=== PATIENT | female | born 2000 | race African-American/Black ===

== ENCOUNTER 2019-06-11 12:44 | Outpatient (RCR) | payer OTHER, SELFPAY | END 2019-09-07 23:59 | disposition home or self-care (01) | LOC: ANHLAB 12:44 | PROVIDERS: PCP Family Medicine; Visit Provider Obstetrics & Gynecology Gynecology | DX: O26.21 Pregnancy care for patient with recurrent pregnancy loss, first trimester (principal); Z3A.00 Weeks of gestation of pregnancy not specified | CPT/HCPCS: 36415; 84702 ==

== ENCOUNTER 2019-06-12 15:12 | Outpatient (CLI) | payer OTHER, SELFPAY ==
--- NOTE | ~2019-06-12 | US_ITS ---
US OB <=14 wk fetus w TV DATE: 06/12/2019 16:03 INDICATION: Gestational age and viability determination TECHNIQUE: Real-time imaging via transabdominal and transvaginal approaches COMPARISON: None FINDINGS: Retroverted uterus measures approximately 8 cm height, 5.8 cm AP, 6.2 cm transverse dimensi on. An intrauterine gestational sac is detected, with normal surrounding hyperechogenicity consistent with decidual reaction. Yolk sac and pole are detected. heart motion is noted; hea rt rate of 144 bpm [place]-rump length measurement is 3.2 mm, consistent with estimated gestational age of 6 weeks +/- 4 d ays; NILO is 02/05/2020. The ovaries appear normal, with normal vascularity. No pelvic mass or abnormal pelvic free fluid vin ection is evident. IMPRESSION: Estimated gestational age of 6 weeks +/- 4 days; NILO: 02/05/2020 Reviewed, dictated and finalized at [facility]. Reviewed, dictated and finalized at [facility].
== END 2019-06-12 15:13 | disposition home or self-care (01) ==
PROVIDERS: PCP Family Medicine; Visit Provider Nurse Practitioner
DX: Z36.89 Encounter for other specified antenatal screening (principal); Z3A.01 Less than 8 weeks gestation of pregnancy
CPT/HCPCS: 76801; 76817

== ENCOUNTER 2019-09-10 14:47 | Outpatient (CLI) | payer OTHER, MEDICAID, SELFPAY ==
--- NOTE | ~2019-09-10 | US_ITS ---
EXAMINATION: US OB /maternal detail DATE: 09/10/2019 15:33 INDICATION: Second trimester anatomic survey TECHNIQUE: Real-time ultrasound of the pelvis was performed. COMPARISON: None. FINDINGS: There is a single living fetus in vertex presentation. The placenta is anterior and 5.4 cm from the i nternal cervical os. Multiple hypoechoic areas placenta likely represent venous [place]. heart ra te is 139 beats per minute (bpm). cardiac activity and movement are noted. The amniotic fluid index is subjectively normal. The following anatomy was identified as normal: 4 chamber heart 3 vessel cord cord insertion kidneys urinary bladder stomach spine diaphragm ventricles cisterna magna cerebellum The following biometric data were obtained: Biparietal diameter (BPD): 4.5 cm; head circumference (HC): 17.3 cm; abdominal circumference (AC): 14 .5 cm; femur length (FL): 3.0 cm. These measurements are concordant. Estimated weight is 304 g +/- 45 g, which correlates with the 88th percentile when 02/05/2020 i s used as estimated date of delivery. As single measurements, these parameters are each equal to the following estimated gestational ages w ith ranges of +/- 2 standard deviations: BPD: 19 weeks 6 days ( 18 weeks 1 days - 21 weeks 4 days). HC: 19 weeks 6 days ( 18 weeks 3 days - 21 weeks 3 days). AC: 19 weeks 6 days ( 17 weeks 6 days - 22 weeks 0 days). FL: 19 weeks 2 days ( 17 weeks 3 days - 21 weeks 0 days). estimated gestational age based solely on measurements from this exam is 19 weeks 5 days +/- 1 weeks 3 days. IMPRESSION: 1. Single living fetus in vertex presentation. 2. Estimated weight is 304 g +/- 45 g, which correlates with the 88th percentile when 0 is used as estimated date of delivery. Reviewed, dictated and finalized at location [facility]. IMPRESSION: 1. Single living fetus in vertex presentation. 2. Estimated weight is 304 g +/- 45 g, which correlates with the 88th per centile when 02/05/2020 is used as estimated date of delivery.
== END 2019-09-10 14:48 | disposition home or self-care (01) ==
PROVIDERS: PCP Family Medicine; Visit Provider Obstetrics & Gynecology Gynecology
DX: Z36.89 Encounter for other specified antenatal screening (principal)
CPT/HCPCS: 76805

== ENCOUNTER 2020-01-29 09:37 | Inpatient (IN) | payer OTHER, MEDICAID, SELFPAY ==
[2020-01-29] VITALS (64 sets, daily range): BP systolic 84–133; BP diastolic 44–106; PULSE 59–113; O2SAT 88–100; BMI 28.5
[2020-01-29 10:54] LABS: Basophils Absolute Auto 0.1 K/mm3 (0.0-0.1); Basophils Percent Auto 0.4 % (0.2-1.2); Eosinophils Absolute Auto 0.2 K/mm3 (0-0.3); Eosinophils Percent Auto 1.2 % (0-4.4); Hematocrit 35.6 % (37.0-47.0); Hemoglobin 11.8 g/dL (12.0-15.0); Immature Granulocyte Absolute 0.06 K/mm3 (0.00-0.031); Immature Granulocyte Percent A 0.4 % (0-0.5); Lymphocytes Absolute Auto 2.65 K/mm3 (0.9-3.2); Lymphocytes Percent Auto 19.5 % (18.3-44.2); Mean Corpuscular HGB Conc 33.1 g/dl (32-36); Mean Corpuscular Hemoglobin 30.3 pg (26-34); Mean Corpuscular Volume 91.3 fl (80-100); Mean Platelet Volume 10.5 fl (7.4-10.4); Monocytes Percent Auto 7.4 % (2.6-8.5); Neutrophils Absolute Auto 9.6 K/mm3 (1.3-6.7); Neutrophils Percent Auto 71.1 % (45.5-73.1); Platelet Count Result 285 k/mm3 (150-375); Red Cell Distribution Width 12.7 % (11.5-14.5); White Blood Count 13.6 K/mm3 (4.5-10.0)
[2020-01-29] MEDS: LACTATED RINGERS 1,000 ML 125 ML IV CONT (10:56)
[2020-01-29] MEDS: AMPICILLIN 2 GM/NS 100 ML 2 GM/100 ML BAG IVPB (10:57)
--- NOTE | 2020-01-29 11:02 | LDADM ---
This patient, Mai Ferrer, was admitted to Labor/Delivery/Recovery 107 on 01/29/20 at 09:37. Plans for labor, pain management and were discussed with patient. Patient/family oriented to hospital policies and general routines including ID bracelet, bed and alarms, visiting hours, pain management, procedures, bathroom and other care routines, personal items, smoking policy, room service/diet and guest tray routines, security routines,call light, and visiting hours. Patient/Family are encouraged to report perceived risks to care and to ask questions if they do not understand what they are told or what they should do. See OBIX for further documentation.
--- NOTE | 2020-01-29 14:13 | WPDANESEPPF ---
Anes - Initial Pre Proc Eval Procedure: labor epidural Date/Time: 01/29/20 14:13 Surgeon: Delmy Xiong MD Pre Op Diagnosis: labor pain Pre Op Diagnosis: Contractions Patient Data Age: 19 Gender: F Height: 1.57 m Weight: 70.7 kg Last Vital Signs Pulse 59 L 01/29/20 14:00 BP 117/75 01/29/20 14:00 Pulse Ox 100 01/29/20 14:11 Allergies Allergy/AdvReac Type Severity Reaction Status Date / Time No Known Allergies Allergy Verified 01/06/20 15:42 Home Medications Medication Instructions Recorded Confirmed Type ergocalciferol (vitamin D2) 1,250 mcg PO 2XW 01/06/20 01/06/20 History [Vitamin D2] prenat.vits,amira,jvh-ibry-cydav 1 tablet PO DAILY 01/06/20 01/06/20 History [ #2] sertraline 50 mg PO DAILY 01/06/20 01/06/20 History valacyclovir 500 mg PO DAILY 01/06/20 01/06/20 History Laboratory Tests 01/29/20 01/29/20 01/29/20 10:45 10:45 10:45 WBC 13.6 K/mm3 H K/mm3 (4.5-10.0) RBC 3.90 M/mm3 L M/mm3 (4.2-5.4) Hgb 11.8 g/dL L g/dL (12.0-15.0) Hct 35.6 % L % (37.0-47.0) MCV 91.3 fl fl (80-100) MCH 30.3 pg pg (26-34) MCHC 33.1 g/dl g/dl (32-36) RDW 12.7 % % (11.5-14.5) Plt Count 285 k/mm3 k/mm3 (150-375) MPV 10.5 fl H fl (7.4-10.4) Immature Gran % (Auto) 0.4 % % (0-0.5) Neut % (Auto) 71.1 % % (45.5-73.1) Lymph % (Auto) 19.5 % % (18.3-44.2) [place] % (Auto) 7.4 % % (2.6-8.5) Eos % (Auto) 1.2 % % (0-4.4) Baso % (Auto) 0.4 % % (0.2-1.2) Lymph # (Auto) 2.65 K/mm3 K/mm3 (0.9-3.2) [place] # (Auto) 1.0 K/mm3 H K/mm3 (0.1-0.6) Eos # (Auto) 0.2 K/mm3 K/mm3 (0-0.3) Baso # (Auto) 0.1 K/mm3 K/mm3 (0.0-0.1) Abs Immat Gran (auto) 0.06 K/mm3 H K/mm3 (0.00-0.031) Absolute Neuts (auto) 9.6 K/mm3 H K/mm3 (1.3-6.7) Absolute Nucleated RBC 0.0 K/mm3 K/mm3 (0.0-0.012) Nucleated RBC % 0.0 % % (0.0-0.2) RPR Pending Blood Type O Positive Antibody Screen Negative Patient hx anesthesia problems: none Family hx anesthesia problems: none [facility] Past Medical History Medical History (Updated 01/29/20 @ 14:14 by Leo Larson DO) Anxiety Bipolar disorder Depression Family History Family History (Updated 01/06/20 @ 15:48 by Dylan Dowling RN) Grandparent Diabetes mellitus Schizophrenia, acute Mother Bipolar 2 disorder Anxiety Depression Social History Social History Smoking status: Never smoker Alcohol intake: never Substance use: current Spiritual care concerns: No Anes - Eval Final PreProcedure Day of Procedure 01/29/20 14:13 Patient weight: overweight ASA classification: II Anesthesia type and monitoring: regional epidural Informed Consent: The patient's anesthetic plan and its attendant risks and benefits were discussed with the patient/family/POA. Questions were solicited and answers provided to the satisfaction of the patient/family/POA.
[2020-01-29] MEDS: AMPICILLIN 1 GM/NS 50 ML 1 GM/50 ML BAG IVPB ×2 (14:55→19:24)
[2020-01-29 17:51] LABS: Amphetamine Screen Urine Negative (Negative); Barbiturate Screen Urine Negative (Negative); Benzodiazepines Screen Urine Negative (Negative); Cannabinoid Screen Urine Negative (Negative); Cocaine Screen Urine Negative (Negative); Methadone Screen Urine Negative (Negative); Opiate Screen Urine Negative (Negative); Phencyclidine Screen Urine Negative (Negative)
[2020-01-29] MEDS: OXYTOCIN 30 UNITS/NS 500 ML 30 UNITS/500 ML BAG 999 UNITS IV CONT (20:24)
--- NOTE | 2020-01-29 20:35 | WPDOBADMIT ---
Obstetrics - Admit Note Admission Note: AROm clear fluid complete and 0 stationPrenatal record reviewed. No pertinent additions to the history and/or any subsequent changes in the physical findings that are not consistent with the expected course of the were found. Additions to the history and/or subsequent changes in the physical findings follow. None.
--- NOTE | 2020-01-29 20:45 | PM.OBPRVD ---
OB - Delivery Note Procedure Delivery date: 01/29/20 Procedure: Intrapartal events: None Induction method: none Delivery augmentation: rupture of membranes Delivery monitor: external FHT and external uterine Route of delivery: Laceration Description: Vaginal - 1st Degree Delivery repair: vicryl Specimen: No Estimated blood loss (mL): 300 Anesthesia type: Epidural Disposition: floor Baby Date of : 01/29/20 Time of : 20:18 Weeks of gestation at delivery: 39 Infant gender: Male Weight (pounds): 6 Weight (ounces): 12 presentation: vertex position: Right Occiput Anterior Placenta delivery description: Spontaneous cord vessel description: 3 Vessels, Clamped/Cut and Around Body x1 score one minute: 9 score five minutes: 9
--- NOTE | 2020-01-29 20:48 | PM.DS ---
DS: Admitting Diagnosis Admitting Diagnosis Admitting Diagnosis: Contractions DS: Discharge Diagnosis Discharge Diagnosis (1) (normal spontaneous vaginal delivery): Code(s): O80 - Encounter for full-term uncomplicated delivery Status: Acute DS: Summary Time Spent with Patient Time attestation: Total time spent providing and/or coordinating discharge services: Exam GI: Inspection: normal to inspection Other: ff below umb DS: Data Data Completed and Pending Labs on day of discharge: Labs from last 24 hours 01/29/20 01/29/20 01/29/20 17:21 10:45 10:45 WBC RBC Hgb Hct MCV MCH MCHC RDW Plt Count MPV Immature Gran % (Auto) Neut % (Auto) Lymph % (Auto) [place] % (Auto) Eos % (Auto) Baso % (Auto) Lymph # (Auto) [place] # (Auto) Eos # (Auto) Baso # (Auto) Abs Immat Gran (auto) Absolute Neuts (auto) Absolute Nucleated RBC Nucleated RBC % Urine Opiates Screen Negative Urine Methadone Screen Negative Ur Barbiturates Screen Negative Ur Phencyclidine Scrn Negative Ur Amphetamine Screen Negative U Benzodiazepines Scrn Negative Urine Cocaine Screen Negative U Cannabinoids Screen Negative RPR Pending Blood Type O Positive Antibody Screen Negative 01/29/20 10:45 WBC 13.6 H RBC 3.90 L Hgb 11.8 L Hct 35.6 L MCV 91.3 MCH 30.3 MCHC 33.1 RDW 12.7 Plt Count 285 MPV 10.5 H Immature Gran % (Auto) 0.4 Neut % (Auto) 71.1 Lymph % (Auto) 19.5 [place] % (Auto) 7.4 Eos % (Auto) 1.2 Baso % (Auto) 0.4 Lymph # (Auto) 2.65 [place] # (Auto) 1.0 H Eos # (Auto) 0.2 Baso # (Auto) 0.1 Abs Immat Gran (auto) 0.06 H Absolute Neuts (auto) 9.6 H Absolute Nucleated RBC 0.0 Nucleated RBC % 0.0 Urine Opiates Screen Urine Methadone Screen Ur Barbiturates Screen Ur Phencyclidine Scrn Ur Amphetamine Screen U Benzodiazepines Scrn Urine Cocaine Screen U Cannabinoids Screen RPR Blood Type Antibody Screen Discharge Plan Discharge Attending physician on discharge: Sarkis Harrison Discharging Clinician: Sarkis Harrison Patient Disposition: Home, Self-Care Activity: may shower and pelvic rest Diet: regular Patient Instructions: Antibiotic Form Stand Alone Forms: General Discharge Information Follow-up/Referrals: Delmy Xiong MD [Physician] - 4 Weeks (nexplanon insertion) Discharge Medications: No Action valacyclovir 500 mg Tablet 500 mg PO DAILY RF: 0 ergocalciferol (vitamin D2) [Vitamin D2] 1,250 mcg (50,000 unit) Capsule 1,250 mcg PO 2XW RF: 0 sertraline 50 mg Tablet 50 mg PO DAILY RF: 0 #2 Tablet 1 tablet PO DAILY RF: 0 Date of admission: 01/29/20 09:37 Primary Care Provider: Caterina Art Admitting Provider: Delmy Xiong Attending physician on admission: Delmy Xiong
[2020-01-29] MEDS: OXYTOCIN 30 UNITS/NS 500 ML 30 UNITS/500 ML BAG 125 UNITS IV CONT (21:05)
[2020-01-29] MEDS: WITCH HAZEL 40 PADS 1 PAD TOPICAL (22:52)
[2020-01-29] MEDS: IBUPROFEN 600 MG TABLET PO (22:52)
[2020-01-29] MEDS: BENZOCAINE 20% AER SPR (*SP) 56 GM CAN 1 SPRAY TOPICAL (22:52)
--- NOTE | 2020-01-29 23:30 | OBPPTRN ---
Patient transferred to post room #288 via wheelchair with in crib. Support person present. Oriented to unit, room, information board, rooming in, admission packet and security measures. Patient verbalizes understanding.
[2020-01-30 00:50] VITALS: BP 99/55; PULSE 72; RESP 17; TEMP 36.7
[2020-01-30 05:38] LABS: Hematocrit 29.7 % (37.0-47.0)
[2020-01-30] MEDS: DOCUSATE SODIUM 100 MG CAPSULE PO ×2 (08:29→15:56)
[2020-01-30] MEDS: MULTIVIT/MIN/PREN/FOL AC/IRON TABLET 1 TAB PO (08:29)
[2020-01-30 08:30] VITALS: BP 95/67; PULSE 72; RESP 12; TEMP 36.4; O2SAT 100
[2020-01-30] MEDS: IBUPROFEN 600 MG TABLET PO ×2 (08:30→15:56)
[2020-01-30 19:10] VITALS: BP 102/62; PULSE 69; RESP 18; TEMP 36.6; O2SAT 100
--- NOTE | 2020-01-30 23:02 | PC.NURSE ---
January 30, 2020 at 2000 Patient viewed the discharge video Mother & Baby Care, The First Two Weeks . Patient was given the opportunity and encouraged to ask questions. Patient verbalized understanding of information shared and has been given the mother/baby guide for home reference.
--- NOTE | 2020-01-31 02:23 | PC.NURSE ---
January 31, 2020 at approximately 2330. With only the Mother and baby in the room I discussed with mother her taking Valacyclovir 500 mg every day for herpes. I explained to mother that is it possible for her to give the baby herpes. Mother states understanding. I explained to mother the importance of her taking the medication as prescribed and if she notices any outbreaks she needs to call her doctor immediately and get the prescription. I also discussed the high importance of handwashing and calling the Senior Accounting Manager if she notices an problems with baby such as poor feeding, lethargy, rhythmic shaking, or increased temperature, etc. I reinforced to Mother if she has any questions or concerns she needs to call her doctor or baby's doctor immediately. Mother states understanding.
--- NOTE | 2020-01-31 03:54 | PHAR ---
PATIENT HOME VALACYCLOVIR ORDERED BY PROVIDER, VERIFIED IN PHARMACY, AND SENT BACK TO FLOOR. (DAP)
[2020-01-31] MEDS: MULTIVIT/MIN/PREN/FOL AC/IRON TABLET 1 TAB PO (09:54)
[2020-01-31] MEDS: DOCUSATE SODIUM 100 MG CAPSULE PO (09:54)
--- NOTE | 2020-01-31 09:57 | WPDANLDPN2 ---
Anes-Prog Note L&D Date/Time: 01/31/20 09:57 Comfortable throughout: labor and delivery Neuraxial method: epidural Epidural/Spinal procedure site: clean & non-tender Neuro status: Neuro function grossly intact. Cardiovascular status: normal Respiratory status: normal Airway patency: baseline Mental status: baseline Post-Op hydration status: normal Vital Signs: Last Vital Signs Temp 36.6 C 01/30/20 19:10 Pulse 69 01/30/20 19:10 Resp 18 01/30/20 19:10 BP 102/62 01/30/20 19:10 Pulse Ox 100 01/30/20 19:10 Pain score (VAS): 0 Post-procedural complaints: none Patient feedback: Patient satisfied with anesthetic care.
--- NOTE | 2020-01-31 11:22 | P.PNOB_ITS ---
OB - PN: Subj Subjective Date/time seen: 01/31/20 11:22 S: doing well no complaints OB - PN: Obj Data Labs CBC & Chem 7: 01/30/20 05:08 OB - PN A/P Assessment and Plan (1) (normal spontaneous vaginal delivery): Code(s): O80 - Encounter for full-term uncomplicated delivery Status: Acute Assessment and Plan: continue with pp care. Time Spent With Patient Time: Total time spent is greater than 50% in coordination of care (as docum ented) at patient's floor/unit and/or counseling patient: Exam GI: Inspection: normal to inspection Other: ff fundus below umbilicus
[2020-02-01 07:02] LABS: Rapid Plasma Reagin Non-Reactive (NonReactive)
[2020-02-03 09:18] VITALS: BP 112/71; PULSE 79; RESP 20; TEMP 36.9; O2SAT 100
== END 2020-01-31 13:20 | disposition home or self-care (01) | DRG 806 ==
LOC: ANHLDR 20:50 → ANHOB2 01-31 11:40 → ANHLDR 02-02 10:22 → ANHOB2 02-02 10:22
PROVIDERS: Admitting Provider Obstetrics & Gynecology Gynecology; PCP Family Medicine; Visit Provider Obstetrics & Gynecology
DX: O69.81X0 Labor and delivery complicated by cord around neck, without compression, not applicable or unspecified (principal); O98.32 Other infections with a predominantly sexual mode of transmission complicating childbirth; Z37.0 Single live birth; O99.344 Other mental disorders complicating childbirth; Z3A.39 39 weeks gestation of pregnancy; F31.9 Bipolar disorder, unspecified; F41.8 Other specified anxiety disorders; O70.0 First degree perineal laceration during delivery; O36.8330 Maternal care for abnormalities of the fetal heart rate or rhythm, third trimester, not applicable or unspecified; O99.824 Streptococcus B carrier state complicating childbirth; B00.9 Herpesviral infection, unspecified
CPT/HCPCS: 36415; 80307; 85014; 85018; 85025; 86592; 86850; 86900; 86901; A9270; J0290; J2590; J2795; J7120

== ENCOUNTER 2020-06-08 19:22 | Emergency (ER) | payer OTHER, SELFPAY ==
[2020-06-08 19:30] VITALS: BP 98/65; PULSE 89; RESP 16; TEMP 36.5; O2SAT 100
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
[2020-06-08 20:45] VITALS: BP 122/75; PULSE 78; RESP 18; O2SAT 99
== END 2020-06-08 20:47 | disposition home or self-care (01) ==
PROVIDERS: Emergency Provider Emergency Medicine; PCP Family Medicine
DX: S06.0X0A Concussion without loss of consciousness, initial encounter (principal); R25.2 Cramp and spasm; F41.9 Anxiety disorder, unspecified; F31.9 Bipolar disorder, unspecified; V43.52XA Car driver injured in collision with other type car in traffic accident, initial encounter
CPT/HCPCS: 99283

== ENCOUNTER 2020-07-25 12:59 | Emergency (ER) | payer OTHER, SELFPAY ==
[2020-07-25 13:10] VITALS: BP 113/64; PULSE 82; RESP 16; TEMP 36.3; O2SAT 99
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
[2020-07-25] MEDS: AZITHROMYCIN 250 MG TABLET 1000 MG PO (13:48)
[2020-07-25] MEDS: LIDOCAINE HCL 1% LOCAL INJ 20 ML VIAL INFILTRATE (13:48)
[2020-07-25] MEDS: cefTRIAXone 250 MG VIAL IM (13:48)
== END 2020-07-25 14:10 | disposition home or self-care (01) ==
PROVIDERS: Emergency Provider Nurse Practitioner; PCP Family Medicine
DX: Z20.2 Contact with and (suspected) exposure to infections with a predominantly sexual mode of transmission (principal)
CPT/HCPCS: 81003; 87086; 87491; 87591; 87661; 96372; 99214; A9270; G0463; J0696

== ENCOUNTER 2021-05-01 13:05 | Emergency (ER) | payer OTHER, SELFPAY ==
--- NOTE | 2021-05-01 13:15 | ED.ABDPAIN ---
HPI - Abdominal Pain General Chief Complaint: Abdominal Pain Stated Complaint: Abd pain Time Seen by Provider: 05/01/21 13:15 Source: patient, RN notes reviewed and old records reviewed Mode of arrival: ambulatory Limitations: no limitations History of Present Illness HPI narrative: 21-year-old female presents to the [facility] with complaints of nausea without vomiting, lower suprapubic pain with urinary symptoms and vaginal complaints. Thinks she might be . Patient reports that it all started 4 days ago when she had sex that was consensual. States it became a little aggressive and thinks that she has small tears or herpes outbreak. Does have a history of herpes. States that she has not been taking prevention medication. MD elicited complaint: abdominal pain Related Data Allergies Allergy/AdvReac Type Severity Reaction Status Date / Time No Known Allergies Allergy Verified 05/01/21 13:40 Review of Systems Review of Systems: All systems reviewed & are unremarkable except as noted in HPI and below Constitutional: Constitutional: Reports no additional constitutional complaints, Denies body ache(s), Denies chills and Denies fever(s) Eyes: Eyes: Reports no additional eye complaints ENT: Reports system reviewed and no additional complaints, except as documented Cardiovascular: Cardiovascular: Reports no additional cardiovascular complaints, Denies chest pain and Denies dyspnea Respiratory: Respiratory: Reports no additional respiratory complaints, Denies cough and Denies dyspnea Gastrointestinal: Gastrointestinal: Reports as per HPI, Reports abdominal pain (Suprapubic), Denies diarrhea, Denies nausea and Denies vomiting Genitourinary: Genitourinary: Reports as per HPI and Reports pelvic pain Musculoskeletal: Musculoskeletal: Reports no additional musculoskeletal complaints Integumentary/Breasts: Skin/Breast: Reports system reviewed and no additional complaints, except as docu Neurologic: Reports system reviewed and no additional complaints, except as documented Psychiatric: Psychiatric: Reports no additional psychiatric complaints Allergic/Immunologic: Allergic/Immunologic: Reports no additional allergic/immunologic complaints PMFSH Past Medical History Medical History Anxiety Bipolar disorder Depression (normal spontaneous vaginal delivery) Family History Family History Grandparent Diabetes mellitus Schizophrenia, acute Mother Bipolar 2 disorder Anxiety Depression Social History Social History (Reviewed 05/01/21 @ 19:42 by BELIA Gaspar Smoking status: Never smoker Alcohol intake: never Substance use: current Gender identity (if verbalized by the patient): Female Spiritual care concerns: No Comments At the time of my signature, I reviewed and agree with the nursing past medical, surgical, social, and family history. There is no relevant family history pertinent to the patient complaint. Exam Const: General: cooperative, healthy appearing, comfortable, no acute distress, well developed and alert Nutritional Appearance: well nourished and thin Orientation/consciousness: patient oriented x3 Limitations: no limitations HENMT: Head: normal to inspection Ears: external ears normal Eyes: Pupils: Equal, round and reactive pupils present Neck: Neck: normal visual inspection, no lymphadenopathy and no meningeal signs Chest: Chest palpation & inspection: normal inspection of the chest Resp: Effort & Inspection: normal respiratory effort, able to speak in complete sentences and no use of accessory muscles Auscultation: clear to auscultation bilaterally Cardio: Rate: regular rate Rhythm: regular rhythm GI: GI Palp: Yes Soft to palpation, No Tenderness to palpation present (GI), No Guarding due to palpation present (GI) and No Rebound tenderness present :
[2021-05-01 13:45] VITALS: BP 120/98; PULSE 95; RESP 12; TEMP 36.4; O2SAT 100
== END 2021-05-01 14:00 | disposition home or self-care (01) ==
PROVIDERS: Emergency Provider Nurse Practitioner; PCP Family Medicine
DX: N76.0 Acute vaginitis (principal); B37.3 Candidiasis of vulva and vagina
CPT/HCPCS: 81003; 81025; 87070; 87491; 87591; 87661; 99214; G0463

== ENCOUNTER 2021-05-16 16:05 | Emergency (ER) | payer OTHER, SELFPAY ==
[2021-05-16 16:20] VITALS: BP 99/61; PULSE 105; RESP 16; TEMP 36.8; O2SAT 100
--- NOTE | 2021-05-16 16:41 | ED.NAVMDI ---
HPI - Nausea/Vomiting/Diarrhea General Chief complaint: Nausea/Vomiting/Diarrhea Stated complaint: abd pain/vomiting Time Seen by Provider: 05/16/21 16:41 Source: patient Mode of arrival: ambulatory Limitations: no limitations History of Present Illness HPI Narrative: 21 yo F presents with c/o N/V/D, ABD cramping, fatigue for 3 to 4 days. Reports that her boyfriend has similar symptoms and they resolved. Today she was able to drink tea and eat without vomiting. Had 1 episode of diarrhea today. Still thinks she cannot go back to work and needs note. Afebrile. All systems reviewed and negative except as noted above. Related Data Allergies Allergy/AdvReac Type Severity Reaction Status Date / Time No Known Allergies Allergy Verified 05/16/21 16:48 Review of Systems Review of Systems: CONSTITUTIONAL: Denies fever, chills, or sweats. EYES: Denies visual changes, redness, or discharge. ENT: Denies rhinorrhea, congestion, sore throat, or otalgia. CARDIOVASCULAR: Denies chest pain, palpitations, or edema. RESPIRATORY: Denies cough or dyspnea. GASTROINTESTINAL: Reports abdominal pain, nausea, vomiting, or diarrhea. GENITOURINARY: Denies dysuria or hematuria. SKIN: Denies rash or itching. MUSCULOSKELETAL: Denies back pain, joint pain, or myalgia. NEUROLOGIC: Denies headache, numbness, or weakness. PSYCHIATRIC: Denies anxiety or depression. All other systems reviewed are negative, except as documented in HPI. PMFSH Past Medical History Medical History Anxiety Bipolar disorder Depression (normal spontaneous vaginal delivery) Family History Family History Grandparent Diabetes mellitus Schizophrenia, acute Mother Bipolar 2 disorder Anxiety Depression Social History Social History Smoking status: Never smoker Alcohol intake: never Substance use: current Gender identity (if verbalized by the patient): Female Spiritual care concerns: No Comments At time of signature, agree with nursing past medical, surgical, social and family history. There is no relevant family history pertinent to the presenting complaint. Exam Narrative: GENERAL: This is a well-nourished, well-developed patient, in no apparent distress. HEAD: normocephalic, atraumatic. EYES: PERRL. Sclera clear/white. Vision is grossly intact. EARS: External ears normal, auditory canals clear and without drainage, TMs normal without perforation. Hearing grossly intact. NOSE: External nose normal with no obvious nasal discharge, nares without redness, no rhinorrhea. THROAT: Mucous membranes moist, posterior pharynx clear. NECK: Neck supple, non-tender without lymphadenopathy, masses or thyromegaly. CARDIOVASCULAR: Regular rate and rhythm without murmurs, gallops, or rubs. RESPIRATORY: Clear to auscultation. Breath sounds equal bilaterally. No wheezes, rales, or rhonchi. GASTROINTESTINAL: Abdomen soft, non-tender, nondistended. Bowel sounds are active. No hepato-splenomegaly, or palpable masses. No guarding. SKIN: warm, Dry, intact with no suspicious lesions or rash, good texture and turgor. NEURO: awake, alert, and oriented to person, place and time. There were no obvious focal neurologic abnormalities. EXTREMITIES: No joint tenderness, effusion, or edema noted. No calf tenderness. Negative Homans sign bilaterally. BACK: Nontender without deformity. No CVA tenderness. Course Course Level of Care: Express Care Visit Vital Signs Vital signs: Vital Signs Temperature 36.8 C 05/16/21 16:20 Pulse Rate 105 H 05/16/21 16:20 Respiratory Rate 16 05/16/21 16:20 Blood Pressure 99/61 L 05/16/21 16:20 Pulse Oximetry 100 05/16/21 16:20 Temperature 36.8 C 05/16/21 17:05 Pulse Rate 105 H 05/16/21 17:05 Respiratory Rate 16 05/16/21 17:05 Blood Pressure 99/61 L 05/16/21 17:05
[2021-05-16 17:05] VITALS: BP 99/61; PULSE 105; RESP 16; TEMP 36.8; O2SAT 100
== END 2021-05-16 17:00 | disposition home or self-care (01) ==
PROVIDERS: Emergency Provider Nurse Practitioner Family; PCP Family Medicine
DX: A08.4 Viral intestinal infection, unspecified (principal)
CPT/HCPCS: 81003; 99213; G0463

== ENCOUNTER 2021-12-26 10:35 | Outpatient (CLI) | payer OTHER, SELFPAY ==
[2021-12-26 11:55] LABS: Hematocrit 37.5 % (37.0-47.0); Hemoglobin 12.5 g/dL (12.0-15.0)
[2021-12-26 12:06] LABS: Glucose 1 Hour PP 50gm Dose 79 mg/dL
[2021-12-26 12:47] LABS: HIV 1/2 Ab P24 Ag Result Negative (Negative)
== END 2021-12-26 10:36 | disposition home or self-care (01) ==
LOC: ANHLAB 10:38
PROVIDERS: PCP Family Medicine; Visit Provider Advanced Practice Midwife
DX: Z36.89 Encounter for other specified antenatal screening (principal); O36.0130 Maternal care for anti-D [Rh] antibodies, third trimester, not applicable or unspecified; Z3A.00 Weeks of gestation of pregnancy not specified
CPT/HCPCS: 36415; 82947; 85014; 85018; 85461; 86703; G0432

== ENCOUNTER 2022-01-11 09:38 | Outpatient (CLI) | payer OTHER, SELFPAY ==
[2022-01-11 10:21] VITALS: BP 114/52; PULSE 78
[2022-01-11 10:31] VITALS: BP 94/71; PULSE 77
[2022-01-11 10:46] VITALS: BP 114/67; PULSE 77
[2022-01-11 11:03] VITALS: RESP 16; TEMP 36.1
[2022-01-11 11:10] LABS: Appearance Urine Clear (Clear); Bilirubin Urine Negative (Negative); Blood Urine Negative (Negative); Color Urine Yellow (Yellow); Glucose Urine UA Negative (Negative); Ketones Urine Trace mg/dL (Negative); Leukocyte Esterase Ur Negative LEU/UL (Negative); Nitrate Urine Negative (Negative); Protein Urine Trace mg/dL (Negative); Specific Grav Ur 1.025 (1.001-1.035)
[2022-01-11 11:17] LABS: Mucus Urine Rare /lpf; RBC Urine 0-2 /hpf (0-2); Squamous Epithelial Cell Urine Moderate /hpf (Few)
--- NOTE | 2022-01-11 11:20 | PC.NURSE ---
Called Dr. Jaramillo. Gave report on patients complaints of a mucus plug, low sharp pain that randomly comes, complaint supervisor contractions on the monitor, and negative ROM+. Orders to discharge patient.
[2022-01-11 11:44] LABS: Add Urine Microscopic? YES
--- NOTE | 2022-01-11 11:57 | OBADM ---
This patient, Mai Ferrer, admitted to the OB room OB Post 115 for observation. Patient/family oriented to hospital policies and general routines including ID bracelet, bed and alarms, visiting hours, pain management, procedures, bathroom and other care routines, personal items, smoking policy, room service/diet, and visiting hours. Patient/Family are encouraged to report perceived risks to care and to ask questions if they do not understand what they are told or what they should do.
== END 2022-01-11 11:55 | disposition home or self-care (01) ==
LOC: ANHLAB 09:45 → ANHOBPP 09:46
PROVIDERS: Advanced Practice Midwife; Visit Provider Obstetrics & Gynecology
DX: O41.8X90 Other specified disorders of amniotic fluid and membranes, unspecified trimester, not applicable or unspecified (principal)
CPT/HCPCS: 81001; 84112; 99199

== ENCOUNTER 2022-01-31 14:49 | Outpatient (CLI) | payer OTHER, SELFPAY ==
[2022-01-31 15:20] VITALS: BP 129/63
== END 2022-01-31 15:41 | disposition home or self-care (01) ==
LOC: ANHOBOP 15:28 → ANHOBPP 15:29
PROVIDERS: Visit Provider Obstetrics & Gynecology
DX: O41.8X90 Other specified disorders of amniotic fluid and membranes, unspecified trimester, not applicable or unspecified (principal)
CPT/HCPCS: 59025; 84112; 99199

== ENCOUNTER 2022-02-09 15:22 | Outpatient (RCR) | payer OTHER, SELFPAY ==
[2022-02-09 16:01] VITALS: BP 129/70; PULSE 76
== END 2022-04-13 12:45 | disposition home or self-care (01) ==
LOC: ANHOBOP 15:22
PROVIDERS: Visit Provider Obstetrics & Gynecology
DX: O36.8130 Decreased fetal movements, third trimester, not applicable or unspecified (principal); Z3A.36 36 weeks gestation of pregnancy
CPT/HCPCS: 59025

== ENCOUNTER 2022-02-28 05:02 | Inpatient (IN) | payer OTHER, SELFPAY ==
[2022-02-28] VITALS (83 sets, daily range): BP systolic 100–180; BP diastolic 60–142; PULSE 54–214; RESP 18; TEMP 36.1–37.2; O2SAT 82–100; BMI 28.2
--- NOTE | 2022-02-28 05:19 | LDADM ---
This patient, Mai Ferrer, was admitted to Labor/Delivery/Recovery 107 on 02/28/22 at 05:02. Plans for labor, pain management and were discussed with patient. Patient/family oriented to hospital policies and general routines including ID bracelet, bed and alarms, visiting hours, pain management, procedures, bathroom and other care routines, personal items, smoking policy, room service/diet and guest tray routines, security routines, and visiting hours. Patient/Family are encouraged to report perceived risks to care and to ask questions if they do not understand what they are told or what they should do. See OBIX for further documentation.
[2022-02-28 05:59] LABS: Basophils Percent Auto 0.5 % (0.2-1.2); Eosinophils Absolute Auto 0.2 K/mm3 (0-0.3); Eosinophils Percent Auto 2.1 % (0-4.4); Hematocrit 33.7 % (37.0-47.0); Hemoglobin 11.1 g/dL (12.0-15.0); Immature Granulocyte Absolute 0.02 K/mm3 (0.00-0.031); Immature Granulocyte Percent A 0.2 % (0-0.5); Mean Corpuscular HGB Conc 32.9 g/dl (32-36); Mean Corpuscular Hemoglobin 30.1 pg (26-34); Mean Corpuscular Volume 91.3 fl (80-100); Mean Platelet Volume 10.6 fl (7.4-10.4); Monocytes Absolute Auto 0.7 K/mm3 (0.1-0.6); Monocytes Percent Auto 8.3 % (2.6-8.5); Neutrophils Absolute Auto 4.7 K/mm3 (1.3-6.7); Neutrophils Percent Auto 57.9 % (45.5-73.1); Platelet Count Result 267 k/mm3 (150-375); Red Blood Count 3.69 M/mm3 (4.2-5.4); Red Cell Distribution Width 13.2 % (11.5-14.5); White Blood Count 8.1 K/mm3 (4.5-10.0)
[2022-02-28] MEDS: OXYTOCIN 30 UNITS/NS 500 ML 30 UNITS/500 ML BAG IV CONT (06:06)
[2022-02-28] MEDS: LACTATED RINGERS 1,000 ML 125 ML IV CONT ×2 (06:06→09:31)
--- NOTE | 2022-02-28 07:40 | WPDOBADMIT ---
Obstetrics - Admit Note Admission Note: record reviewed. No pertinent additions to the history and/or any subsequent changes in the physical findings that are not consistent with the expected course of the were found. elective IOL, bright light negative, sve 2/60/-2 soft, AROM moderate amount of clear odorless fluid Additions to the history and/or subsequent changes in the physical findings follow. None.
--- NOTE | 2022-02-28 11:42 | P.PCNOB_ITS ---
OB - Delivery Note Procedure Delivery date: 02/28/22 Procedure: Induction method: AROM and Per Pitocin Protocol Delivery monitor: External FHT and External Uterine Route of delivery: Laceration Description: None Specimen: No Quantitative Blood Loss (ml): 107 Anesthesia type: Epidural Disposition: Floor Narrative: mom and baby stable, baby initially taken to warmer and now skin to skin [place] Baby Date of : 02/28/22 Time of : 11:29 Weeks of gestation at delivery: 39 Infant gender: Male Weight (pounds): 6 Weight (ounces): 12 presentation: vertex position: Right Occiput Anterior Placenta delivery description: Spontaneous Cord Vessel Description: 3 Vessels, Nuchal Cord and Clamped/Cut score one minute: 6 score five minutes: 9
[2022-02-28] MEDS: OXYTOCIN 30 UNITS/NS 500 ML 30 UNITS/500 ML BAG 125 UNITS IV CONT (12:30)
[2022-02-28 15:50] LABS: Rapid Plasma Reagin Non-Reactive (NonReactive)
--- NOTE | 2022-02-28 16:13 | OBPPTRN ---
1454 Patient transferred to post room #290 via W/C. Support person present. Oriented to unit, room, information board, rooming in, admission packet and security measures. Patient verbalizes understanding.
[2022-02-28] MEDS: IBUPROFEN 600 MG TABLET PO (17:28)
[2022-02-28] MEDS: ACETAMINOPHEN 325 MG TABLET 650 MG PO (22:28)
[2022-03-01] MEDS: IBUPROFEN 600 MG TABLET PO ×2 (03:42→09:22)
[2022-03-01 03:45] VITALS: BP 105/64; PULSE 59; RESP 16; TEMP 36.8
[2022-03-01 05:48] LABS: Hemoglobin 10.8 g/dL (12.0-15.0)
--- NOTE | 2022-03-01 06:12 | PM.OBPNVD ---
OB - PN: Subj Subjective Date/time seen: 03/01/22 06:12 s/p vaginal delivery day 1 OB - PN: Obj Data Labs 03/01/22 03:49 Labs: Laboratory Results - last 24 hr 02/28/22 02/28/22 03/01/22 05:09 05:09 03:49 Hgb 10.8 L Hct 33.0 L RPR Non-reactive Blood Type O Positive Antibody Screen Negative OB - PN A/P Plan day: 1 Time Spent With Patient Time: Total time spent is greater than 50% in coordination of care (as documented) at patient's floor/unit and/or counseling patient: Review of Systems Review of Systems: All systems reviewed & are unremarkable except as noted in HPI and below Exam Const: General: cooperative and healthy appearing Chest: Chest palpation & inspection: normal inspection of the chest Resp: Effort & Inspection: normal respiratory effort
--- NOTE | 2022-03-01 06:13 | P.DS_ITS ---
DS: Admitting Diagnosis Discharge Date 03/01/22 Admitting Diagnosis IOL OB - DS: Summary OB Procedures : None OB Procedures Intrapartum: Spontaneous Vag Delivery OB Procedures: : None Time Spent with Patient Time attestation: Total time spent providing and/or coordinating discharge services: DS: Data Data Completed and Pending Labs on day of discharge: Labs from last 24 hours 03/01/22 02/28/22 02/28/22 03:49 05:09 05:09 Hgb 10.8 L Hct 33.0 L RPR Non-reactive Blood Type O Positive Antibody Screen Negative Discharge Plan Discharge Attending physician on discharge: Ned Jaramillo Discharging Clinician: Sissy Parker Patient Disposition: Home, Self-Care Activity: pelvic rest Diet: regular Patient Instructions: Antibiotic Form Stand Alone Forms: General Discharge Information Follow-up/Referrals: Sissy Parker, CNM [Certified Nurse Director Of Distribution] - 4 Weeks Discharge Medications: New ibuprofen 600 mg Tablet 600 mg PO Q6H PRN (Reason: Cramping) Qty: 30 0RF Continued PNV cmb#95-ferrous fumarate-FA [] 28 mg iron- 800 mcg tablet 1 tablet PO DAILY Discontinued valacyclovir 500 mg tablet 500 mg PO DAILY Date of admission: 02/28/22 05:02 Primary Care Provider: PHYSICIAN,OCCASIONAL CAREGIVER Admitting Provider: Ned Jaramillo Attending physician on admission: Ned Jaramillo Condition: Stable
[2022-03-01 09:00] VITALS: BP 130/75; PULSE 61; RESP 18; TEMP 37.3; O2SAT 100
[2022-03-01] MEDS: MULTIVIT/MIN/PREN/FOL AC/IRON TABLET 1 TAB PO (09:22)
[2022-03-01] MEDS: DOCUSATE SODIUM 100 MG CAPSULE PO (09:22)
--- NOTE | 2022-03-01 11:00 | PC.NURSE ---
Patient viewed the discharge video Mother & Baby Care, The First Two Weeks . Patient was given the opportunity and encouraged to ask questions. Patient verbalized understanding of information shared and has been given the mother/baby guide for home reference.
--- NOTE | 2022-03-01 18:42 | PM.OBDSVD ---
DS: Admitting Diagnosis Discharge Date 03/01/22 Admitting Diagnosis IOL OB - DS: Summary OB Procedures : None OB Procedures Intrapartum: Spontaneous Vag Delivery OB Procedures: : None Time Spent with Patient Time attestation: Total time spent providing and/or coordinating discharge services: DS: Data Data Completed and Pending Labs on day of discharge: Labs from last 24 hours 03/01/22 03:49 Hgb 10.8 L Hct 33.0 L Discharge Plan Discharge Attending physician on discharge: Ned Jaramillo Consulting providers: Sissy Parker Discharging Clinician: Sissy Parker Patient Disposition: Home, Self-Care Activity: pelvic rest Diet: regular Discharge Instructions: Education: Mom and Baby Guide Given to: Mother Follow-Up: Call your delivering provider's office for an appointment to be seen in: 4 Weeks Mom and baby should come to the [facility] for the follow-up appointment. Appointment Date/Time: March 02, 2022 at 9:00 am What to expect at your follow-up visit: Blood Pressure Check Physical Assessment Call [phone] if you are unable to keep your appointment time. BREAST CARE: * Wear a snug supportive bra. * For engorgement discomfort: Breast Feeding: * Apply warm moist washcloths * Express milk as needed to relieve engorgement * Wear loose clothing * For sore nipples: * Identify correct latch-on * Apply warm moist washcloths before and after nursing * Air dry nipples after nursing * May apply Lansinoh cream to nipples PERINEAL CARE: * Until bleeding stops, use your tl bottle after urinating * Change your pad frequently throughout the day * You may take sitz baths several times a day (fill your bathtub with warm water and soak for 20 minutes.) Do NOT bathe in the water * No tub baths until seen by your physician - You may shower ACTIVITY: * Rest as much as possible. * Do not exercise or lift anything heavier than your baby (such as laundry or other children.) * Avoid stairs or driving as much as possible. * Do not put anything into the vagina. No douching, tampons, or sexual activity until seen by physician. NOTIFY PHYSICIAN IF YOU HAVE ANY QUESTIONS OR IF ANY OF THE FOLLOWING SYMPTOMS OCCUR: * If your vaginal bleeding becomes foul smelling. * If your vaginal bleeding becomes more heavy than a period or if your bleeding changes from pink to bright red. However, you may pass an occasional walnut-sized clot once or twice for the first week . * If you experience a sharp, shooting pain in your calves. * If you discover a hard, reddened area on your breast or if you experience flu-like symptoms. DIET: * Eat regular, well-balanced meals. * Drink plenty of fluids daily. If , drink to thirst. Stand Alone Forms: General Discharge Information Follow-up/Referrals: Sissy Parker CNM [Certified Nurse Electrician Ship] - 4 Weeks Discharge Medications: New ibuprofen 600 mg Tablet 600 mg PO Q6H PRN (Reason: Cramping) Qty: 30 0RF Continued PNV cmb#95-ferrous fumarate-FA [] 28 mg iron- 800 mcg tablet 1 tablet PO DAILY Discontinued valacyclovir 500 mg tablet 500 mg PO DAILY Date of admission: 02/28/22 05:02 Primary Care Provider: PHYSICIAN,ORTHOPAEDIC TECHNOLOGIST Admitting Provider: Ned Jaramillo Attending physician on admission: Ned Jaramillo Condition: Stable
--- NOTE | 2022-03-03 08:57 | PM.OBDSVD ---
DS: Admitting Diagnosis Discharge Date 03/01/22 Admitting Diagnosis IOL DS: Discharge Diagnosis Discharge Diagnosis (1) (normal spontaneous vaginal delivery): Code(s): O80 - Encounter for full-term uncomplicated delivery Status: Acute OB - DS: Summary OB Procedures : None OB Procedures Intrapartum: Spontaneous Vag Delivery OB Procedures: : None Time Spent with Patient Time attestation: Total time spent providing and/or coordinating discharge services: Discharge Plan Discharge Attending physician on discharge: Ned Jaramillo Consulting providers: Sissy Parker Discharging Clinician: Sissy Parker Patient Disposition: Home, Self-Care Activity: pelvic rest Diet: regular Discharge Instructions: Education: Mom and Baby Guide Given to: Mother Follow-Up: Call your delivering provider's office for an appointment to be seen in: 4 Weeks Mom and baby should come to the [facility] for the follow-up appointment. Appointment Date/Time: March 02, 2022 at 9:00 am What to expect at your follow-up visit: Blood Pressure Check Physical Assessment Call [phone] if you are unable to keep your appointment time. BREAST CARE: * Wear a snug supportive bra. * For engorgement discomfort: Breast Feeding: * Apply warm moist washcloths * Express milk as needed to relieve engorgement * Wear loose clothing * For sore nipples: * Identify correct latch-on * Apply warm moist washcloths before and after nursing * Air dry nipples after nursing * May apply Lansinoh cream to nipples PERINEAL CARE: * Until bleeding stops, use your tl bottle after urinating * Change your pad frequently throughout the day * You may take sitz baths several times a day (fill your bathtub with warm water and soak for 20 minutes.) Do NOT bathe in the water * No tub baths until seen by your physician - You may shower ACTIVITY: * Rest as much as possible. * Do not exercise or lift anything heavier than your baby (such as laundry or other children.) * Avoid stairs or driving as much as possible. * Do not put anything into the vagina. No douching, tampons, or sexual activity until seen by physician. NOTIFY PHYSICIAN IF YOU HAVE ANY QUESTIONS OR IF ANY OF THE FOLLOWING SYMPTOMS OCCUR: * If your vaginal bleeding becomes foul smelling. * If your vaginal bleeding becomes more heavy than a period or if your bleeding changes from pink to bright red. However, you may pass an occasional walnut-sized clot once or twice for the first week . * If you experience a sharp, shooting pain in your calves. * If you discover a hard, reddened area on your breast or if you experience flu-like symptoms. DIET: * Eat regular, well-balanced meals. * Drink plenty of fluids daily. If , drink to thirst. Stand Alone Forms: General Discharge Information Follow-up/Referrals: Sissy Parker CNM [Certified Nurse Mold Filler] - 4 Weeks Discharge Medications: New ibuprofen 600 mg Tablet 600 mg PO Q6H PRN (Reason: Cramping) Qty: 30 0RF Continued PNV cmb#95-ferrous fumarate-FA [] 28 mg iron- 800 mcg tablet 1 tablet PO DAILY Discontinued valacyclovir 500 mg tablet 500 mg PO DAILY Date of admission: 02/28/22 05:02 Primary Care Provider: PHYSICIAN,PLASTIC STRAIGHTENING ROLL OPERATOR Admitting Provider: Ned Jaramillo Attending physician on admission: Ned Jaramillo Condition: Stable
== END 2022-03-01 12:43 | disposition home or self-care (01) | DRG 560 ==
LOC: ANHLDR 05:04 → ANHOB2 15:04
PROVIDERS: Advanced Practice Midwife; Admitting Provider Obstetrics & Gynecology; Visit Provider Obstetrics & Gynecology
DX: O62.3 Precipitate labor (principal); O69.1XX0 Labor and delivery complicated by cord around neck, with compression, not applicable or unspecified; Z3A.39 39 weeks gestation of pregnancy; Z37.0 Single live birth
CPT/HCPCS: 36415; 85014; 85018; 85025; 86592; 86850; 86900; 86901; A9270; J2590; J2795; J7120

== ENCOUNTER 2022-07-16 12:53 | Emergency (ER) | payer OTHER, SELFPAY ==
[2022-07-16 12:59] VITALS: BP 128/50; PULSE 97; RESP 16; TEMP 36.7; O2SAT 99
--- NOTE | 2022-07-16 13:36 | ED.SKABFB ---
HPI - Skin/Abscess/Foreign Bdy General Chief complaint: Skin/Abscess/Foreign Body Stated complaint: Bump on back of Neck Source: patient, RN notes reviewed and old records reviewed Mode of arrival: ambulatory Limitations: no limitations Related Data Home Medications Medication Instructions Recorded Confirmed No Home Medications 07/16/22 07/16/22 Allergies Allergy/AdvReac Type Severity Reaction Status Date / Time No Known Allergies Allergy Verified 01/11/22 12:01 Review of Systems Review of Systems: All systems reviewed & are unremarkable except as noted in HPI and below Constitutional: Constitutional: Reports no additional constitutional complaints Eyes: Eyes: Reports no additional eye complaints ENT: Reports system reviewed and no additional complaints, except as documented Cardiovascular: Cardiovascular: Reports no additional cardiovascular complaints, Denies chest pain and Denies dyspnea Respiratory: Respiratory: Reports no additional respiratory complaints, Denies chest congestion, Denies cough and Denies dyspnea Gastrointestinal: Gastrointestinal: Reports no additional gastrointestinal complaints, Denies abdominal pain, Denies nausea and Denies vomiting Musculoskeletal: Musculoskeletal: Reports no additional musculoskeletal complaints Integumentary/Breasts: Skin/Breast: Reports system reviewed and no additional complaints, except as docu Neurologic: Reports system reviewed and no additional complaints, except as documented Psychiatric: Psychiatric: Reports no additional psychiatric complaints Allergic/Immunologic: Allergic/Immunologic: Reports no additional allergic/immunologic complaints [facility] Past Medical History Medical History Anxiety Bipolar disorder Depression (normal spontaneous vaginal delivery) Family History Family History Grandparent Diabetes mellitus Schizophrenia, acute Mother Bipolar 2 disorder Anxiety Depression Social History Social History Smoking status: Never smoker Alcohol intake: never Substance use: never Lack of Transportation: No Lack of Food: Never True Current Housing: I Have Housing Concerned About Future Housing: No Difficulty Paying Gas/Electric Bills: No Difficulty Paying for Meds: No Currently Unemployed: No Education: High School Diploma/GED Difficulty w/ Childcare or Family Care: No Gender identity (if verbalized by the patient): Female Spiritual care concerns: No Comments At the time of my signature, I reviewed and agree with the nursing past medical, surgical, social, and family history. There is no relevant family history pertinent to the patient complaint. Exam Const: General: cooperative, healthy appearing, comfortable, no acute distress, well developed, alert and well nourished Nutritional Appearance: well nourished Orientation/consciousness: patient oriented x3 Limitations: no limitations HENMT: Head: normal to inspection Ears: hearing grossly normal bilaterally and external ears normal Face/Nose/Sinus: Normal external nose present, Normal nares present, Normal nasal mucous membranes and turbinates present and normal facial exam Face and sinus: normal facial exam Mouth: Yes Normal oral and palatal mucosa present, Yes lip normal and Yes moist mucous membranes Throat: posterior oropharynx normal and uvula midline Eyes: General: appearance normal, both eyes and all related structures Alignment and Position: alignment normal Periorbital: periorbital findings normal Conjunctivae: conjunctivae normal Pupils: Equal, round and reactive pupils present EOM: EOMs intact bilaterally Neck: Neck: normal visual inspection, full ROM, no lymphadenopathy and no meningeal signs Chest: Chest palpation & inspection: normal inspection of the chest Resp: Ef
== END 2022-07-16 13:56 | disposition left against medical advice (07) ==
DX: Z53.21 Procedure and treatment not carried out due to patient leaving prior to being seen by health care provider (principal)
CPT/HCPCS: 99199

== ENCOUNTER 2023-08-20 07:18 | Outpatient (CLI) | payer OTHER, SELFPAY ==
[2023-08-20 09:01] LABS: Basophils Percent Auto 0.4 % (0.2-1.2); Eosinophils Absolute Auto 0.1 K/mm3 (0-0.3); Eosinophils Percent Auto 1.6 % (0-4.4); Hematocrit 31.2 % (37.0-47.0); Immature Granulocyte Absolute 0.02 K/mm3 (0.00-0.031); Immature Granulocyte Percent A 0.3 % (0-0.5); Lymphocytes Absolute Auto 1.59 K/mm3 (0.9-3.2); Lymphocytes Percent Auto 23.7 % (18.3-44.2); Mean Corpuscular HGB Conc 32.1 g/dl (32-36); Mean Corpuscular Hemoglobin 29.9 pg (26-34); Mean Corpuscular Volume 93.1 fl (80-100); Mean Platelet Volume 9.9 fl (7.4-10.4); Monocytes Absolute Auto 0.5 K/mm3 (0.1-0.6); Neutrophils Absolute Auto 4.5 K/mm3 (1.3-6.7); Platelet Count Result 258 k/mm3 (150-375); Red Blood Count 3.35 M/mm3 (4.2-5.4); Red Cell Distribution Width 12.9 % (11.5-14.5); White Blood Count 6.7 K/mm3 (4.5-10.0)
[2023-08-20 09:14] LABS: Glucose 1 Hour PP 50gm Dose 121 mg/dL
[2023-08-20 09:58] LABS: HIV 1/2 Ab P24 Ag Result Negative (Negative)
[2023-08-20 11:42] LABS: Rapid Plasma Reagin Non-Reactive (NonReactive)
== END 2023-08-20 07:19 | disposition home or self-care (01) ==
LOC: ANHLAB 07:20
PROVIDERS: Visit Provider Obstetrics & Gynecology
DX: Z34.90 Encounter for supervision of normal pregnancy, unspecified, unspecified trimester (principal)
CPT/HCPCS: 36415; 82947; 85025; 85660; 86592; 86703; G0432

== ENCOUNTER 2023-09-13 15:58 | Outpatient (CLI) | payer OTHER, SELFPAY ==
--- NOTE | ~2023-09-13 | US_ITS ---
EXAMINATION: US OB follow up DATE: 09/13/2023 17:24 INDICATION: Encounter for supervision of normal . TECHNIQUE: Real-time ultrasound of the pelvis was performed. COMPARISON: Ultrasound 06/26/2023 FINDINGS: There is a single living fetus in vertex presentation. The placenta is anterior. heart rate is 134 beats per minute (bpm). The amniotic fluid index is 11.9 cm, which is normal. The following biometric data were obtained: Biparietal diameter (BPD): 8.6 cm; head circumference (HC): 31.2 cm; abdominal circumference (AC): 32 .6 cm; femur length (FL): 6.9 cm. These measurements are concordant. Estimated weight is 2789 g +/- 418 g, which correlates with the 38th percentile when 10/08/23 is used as estimated date of delivery. As single measurements, these parameters are each equal to the following estimated gestational ages: BPD: 34 weeks 5 days. HC: 34 weeks 6 days. AC: 36 weeks 4 days. FL: 35 weeks 3 days. estimated gestational age based solely on measurements from this exam is 35 weeks 3 days +/- 2 weeks 3 days. IMPRESSION: 1. Single living fetus in vertex presentation. 2. Estimated weight is 2789 g +/- 418 g, which correlates with the 38th percentile when 4 is used as estimated date of delivery. Reviewed, dictated and finalized at location A. IMPRESSION: 1. Single living fetus in vertex presentation. 2. Estimated weight is 2789 g +/- 418 g, which correlates with the 38th percentile when 10/08/23 is used as estimated date of delivery.
== END 2023-09-13 15:59 | disposition home or self-care (01) ==
PROVIDERS: Visit Provider Obstetrics & Gynecology
DX: Z34.93 Encounter for supervision of normal pregnancy, unspecified, third trimester (principal); Z3A.35 35 weeks gestation of pregnancy
CPT/HCPCS: 76816

== ENCOUNTER 2023-09-25 13:01 | Observation (INO) | payer OTHER, SELFPAY ==
--- NOTE | ~2023-09-25 | US_ITS ---
EXAMINATION: US OB limited w BPP DATE: 09/25/2023 17:00 INDICATION: Nonreactive nonstress test. Assess amniotic fluid index. TECHNIQUE: Real-time pelvic ultrasound was performed. The interpreting radiologist was not present fo r the study. COMPARISON: 09/13/2023 FINDINGS: There is a single living fetus in vertex presentation. The placenta is anterior. heart rate is 145 beats per minute (bpm). Amniotic fluid index measuring 7.0 cm which is slightly below the normal range (5th%-95%: 7.3-23.9 cm at 38 weeks estimated gestational age) Biophysical profile performed by the technologist: breathing (30 sec sustained breathing in 30 minutes): 2 out of 2 movement (3 gross body movements in 30 minutes): 2 out of 2 tone (one episode of fwxxtvy-rbjimopga-qyqktdv limb movement): 2 out of 2 Amniotic fluid pocket (2 cm): 2 out of 2 Total score: 8 out of 8 IMPRESSION: 1. Single living fetus in vertex presentation with heart rate of 145 bpm. 2. Biophysical profile 8 out of 8. 3. Oligohydramnios with amniotic fluid index of 7.0 cm which is below the 5th percentile. Reviewed, dictated and finalized at location A. IMPRESSION: 1. Single living fetus in vertex presentation with heart rate of 145 bpm. 2. Biophysical profile 8 out of 8. 3. Oligohydramnios with amniotic fluid index of 7.0 cm which is below the 5th p ercentile.
[2023-09-25 14:00] VITALS: TEMP 36.6
[2023-09-25 16:06] LABS: OBXCEM ROM Plus Negative
--- NOTE | 2023-09-25 17:05 | PC.NURSE ---
1643--Reported BPP and ADOLPH to Dr. Sprague. DC orders and labor precautions reinforced.
--- NOTE | 2023-09-26 07:55 | PM.OBTRLD ---
OB - Triage/Final Diagnosis Visit Information Comments/Additional reasons for admission: I have assessed the risk for this patient, Mai Ferrer, and determined that she would benefit from observation care. Evaluation Laboratory results: Laboratory Tests 09/25/23 16:04 Membranes Rupture Rom plus negative Membranes Rup Com Yes Vital signs: Vital Signs - 24 hr 09/25/23 14:00 Temperature 97.9 F Final Diagnosis (1) Abdominal pain affecting : Code(s): O26.899 - Other specified related conditions, unspecified trimester; R10.9 - Unspecified abdominal pain Status: Acute
== END 2023-09-25 16:50 | disposition home or self-care (01) ==
PROVIDERS: Admitting Provider Obstetrics & Gynecology; Visit Provider Obstetrics & Gynecology
DX: O26.893 Other specified pregnancy related conditions, third trimester (principal); R10.9 Unspecified abdominal pain; Z3A.38 38 weeks gestation of pregnancy
CPT/HCPCS: 76815; 76819; 84112; G0378; G0379

== ENCOUNTER 2023-09-28 01:23 | Observation (INO) | payer OTHER, SELFPAY ==
[2023-09-28 01:41] VITALS: BP 131/80; PULSE 88
[2023-09-28 02:01] VITALS: BP 109/59; PULSE 87
[2023-09-28 02:11] VITALS: TEMP 36.9; BMI 26.9
--- NOTE | 2023-09-28 02:11 | OBADM ---
This patient, Mai Ferrer, admitted to the OB room Labor/Delivery/Recovery 107 for observation. Patient/family oriented to hospital policies and general routines including ID bracelet, bed and alarms, visiting hours, pain management, procedures, bathroom and other care routines, personal items, smoking policy, room service/diet, and visiting hours. Patient/Family are encouraged to report perceived risks to care and to ask questions if they do not understand what they are told or what they should do.
[2023-09-28 02:31] VITALS: BP 121/64; PULSE 76
--- NOTE | 2023-10-07 17:08 | PM.OBTRLD ---
OB - Triage/Final Diagnosis Visit Information Comments/Additional reasons for admission: I have assessed the risk for this patient, Mai Ferrer, and determined that she would benefit from observation care. Final Diagnosis (1) False labor: Code(s): O47.9 - False labor, unspecified Status: Acute
== END 2023-09-28 04:01 ==
PROVIDERS: Admitting Provider Obstetrics & Gynecology; Visit Provider Obstetrics & Gynecology
DX: O47.1 False labor at or after 37 completed weeks of gestation (principal); Z3A.38 38 weeks gestation of pregnancy
CPT/HCPCS: G0378; G0379

== ENCOUNTER 2023-10-01 06:03 | Inpatient (IN) | payer OTHER, SELFPAY ==
[2023-10-01] VITALS (70 sets, daily range): BP systolic 89–153; BP diastolic 18–134; PULSE 27–251; RESP 16; TEMP 36.4–36.9; O2SAT 79–100
--- NOTE | 2023-10-01 06:29 | LDADM ---
This patient, Mai Ferrer, was admitted to Labor/Delivery/Recovery 106 on 10/01/23 at 06:03. Plans for labor, pain management and were discussed with patient. Patient/family oriented to hospital policies and general routines including ID bracelet, bed and alarms, visiting hours, pain management, procedures, bathroom and other care routines, personal items, smoking policy, room service/diet and guest tray routines, security routines, and visiting hours. Patient/Family are encouraged to report perceived risks to care and to ask questions if they do not understand what they are told or what they should do. See OBIX for further documentation.
[2023-10-01 06:37] LABS: Basophils Absolute Auto 0.1 K/mm3 (0.0-0.1); Basophils Percent Auto 0.7 % (0.2-1.2); Eosinophils Absolute Auto 0.2 K/mm3 (0-0.3); Eosinophils Percent Auto 2.4 % (0-4.4); Hematocrit 31.2 % (37.0-47.0); Hemoglobin 10.1 g/dL (12.0-15.0); Immature Granulocyte Absolute 0.02 K/mm3 (0.00-0.031); Immature Granulocyte Percent A 0.2 % (0-0.5); Lymphocytes Absolute Auto 2.94 K/mm3 (0.9-3.2); Lymphocytes Percent Auto 36.5 % (18.3-44.2); Mean Corpuscular HGB Conc 32.4 g/dl (32-36); Mean Corpuscular Volume 89.7 fl (80-100); Mean Platelet Volume 10.3 fl (7.4-10.4); Monocytes Absolute Auto 0.7 K/mm3 (0.1-0.6); Monocytes Percent Auto 8.1 % (2.6-8.5); Neutrophils Absolute Auto 4.2 K/mm3 (1.3-6.7); Neutrophils Percent Auto 52.1 % (45.5-73.1); Platelet Count Result 208 k/mm3 (150-375); Red Blood Count 3.48 M/mm3 (4.2-5.4); White Blood Count 8.1 K/mm3 (4.5-10.0)
--- NOTE | 2023-10-01 06:38 | PM.IMHP ---
H&P: HPI History of Present Illness Date/Time: 10/01/23 07:40 Chief Complaint: Elective IOL Narrative: Mai is a 23yo @ 39.0wks who presents for elective IOL. She has had regular care. She reports strong contractions, already s/p epidural and more comfortable now. No VB or LOF. She reports good movement. She denies any symptoms of HSV outbreak. 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 - Anxiety - Anemia Review of Systems Constitutional: Constitutional: Denies chills, Denies fever(s) and Denies headache(s) Eyes: Eyes: Denies change in vision ENT: Denies headache(s) Cardiovascular: Cardiovascular: Denies chest pain and Denies dyspnea Respiratory: Respiratory: Denies dyspnea Genitourinary: Genitourinary: Denies abnormal vaginal bleeding and Denies vaginal discharge Neurologic: Denies headache(s) Psychiatric: Psychiatric: Denies anxiety and Denies depression PMF Past Medical History Medical History Anxiety Bipolar disorder Depression (normal spontaneous vaginal delivery) Suppression of menses Family History Family History Grandparent Diabetes mellitus Schizophrenia, acute Mother Bipolar 2 disorder Anxiety Depression Social History Social History Smoking status: Never smoker Alcohol intake: never Substance use: never Do You Feel Safe in your Home?: Yes Lack of Transportation: YES Lack of Food: Never True Current Housing: I Have Housing Concerned About Future Housing: No Difficulty Paying Gas/Electric Bills: No Difficulty Paying for Meds: No Currently Unemployed: No Education: High School Diploma/GED Difficulty w/ Childcare or Family Care: No Living arrangements: with family Occupation/Education: unemployed Gender identity (if verbalized by the patient): Female Spiritual care concerns: No Meds Home Medications and Allergies Home Medications Medication Instructions Recorded Confirmed Type valacyclovir 500 mg tablet 500 mg PO Q12H #120 tabs 09/10/23 10/01/23 Rx Allergies Allergy/AdvReac Type Severity Reaction Status Date / Time No Known Allergies Allergy Verified 09/24/23 13:48 Vital Signs Vital Signs - 24 hr 10/01/23 06:27 Oxygen Delivery Room Air Exam Const: General: cooperative, healthy appearing, comfortable and no acute distress Nutritional Appearance: obese Orientation/consciousness: patient oriented x3 Resp: Effort & Inspection: normal respiratory effort Cardio: Rate: regular rate GI: GI Palp: No abdominal tenderness : Other: FHT's: 140's/ mod chano/ + accels/ no decels - cat 1 TOCO: ctxs q2-3min Cervix: 7/80/-2 Membranes: AROM, clear 0750 Presentation: cephalic Skin: General skin exam: normal color Neuro: General: patient oriented x3 Extrem: General: normal to inspection Psych: Appearance: grossly normal Affect: normal affect Attitude: cooperative Assessment and Plan Assessment and plan (1) Encounter for elective induction of labor: Code(s): Z34.90 - Encounter for supervision of normal , unspecified, unspecified trimester Status: Acute Plan - Admitted to L&D for elective IOL - AROM performed; clear fluid - Low dose Pitocin per protocol if no change in 1-2 hours - GBS neg - Continuous monitoring currently reassuring - S/p epidural and comfortable
[2023-10-01] MEDS: LACTATED RINGERS 1,000 ML 125 ML IV CONT ×2 (07:00→08:07)
[2023-10-01 07:26] LABS: HIV 1/2 Ab P24 Ag Result Negative (Negative)
[2023-10-01] MEDS: OXYTOCIN 30 UNITS/NS 500 ML 30 UNITS/500 ML BAG 999 UNITS IV CONT (10:37)
[2023-10-01] MEDS: OXYTOCIN 30 UNITS/NS 500 ML 30 UNITS/500 ML BAG 125 UNITS IV CONT (11:04)
--- NOTE | 2023-10-01 11:26 | PM.OBPRVD ---
OB - Vaginal Delivery Note Procedure Delivery date: 10/01/23 Events: Elective Induction of Labor (, but presented in active labor) Induction method: AROM Delivery monitor: External FHT and External Uterine Route of delivery: Laceration Description: None Quantitative Blood Loss (ml): 100 Anesthesia type: Epidural Disposition: Floor Complications: No immediate complications Baby Date of : 10/01/23 Time of : 10:32 Weeks of gestation at delivery: 39 Infant gender: Male Weight (pounds): 7 Weight (ounces): 10 presentation: vertex Placenta delivery description: Expressed Cord Vessel Description: 3 Vessels and Delayed Cord Clamping score one minute: 8 score five minutes: 8 Narrative: Mai progressed to complete dilation with strong desire to push. She pushed for 3 contractions and delivered the head over intact perineum. No nuchal cord was palpated. She easily delivered the infant's shoulders and body without complication. The was immediately placed skin to skin and was stimulated by the pediatric team in cry was then heard. His mouth and nose were bulb suctioned by the pediatric nurse. Delayed cord clamping was performed. The umbilical cord was then doubly clamped and cut. Segment of the cord was collected for cord gases. The remaining cord blood was collected for typing. With Pitocin running and gentle downward traction on the cord, the placenta delivered without complication. Bimanual massage was performed and good uterine tone with minimal bleeding was noted. She was examined and no lacerations were identified. Her uterus remained firm with minimal bleeding. Sponge, lap, instrument, and needle counts were correct at the end of the procedure. Mom and baby were left bonding in the birthing suite in stable condition.
[2023-10-01] MEDS: BENZOCAINE 20% AER SPR (*SP) 56 GM CAN 1 SPRAY TOPICAL (13:16)
[2023-10-01] MEDS: WITCH HAZEL 40 PADS 1 PAD TOPICAL (13:16)
--- NOTE | 2023-10-01 13:32 | PC.NURSE ---
Patient transferred to post room #286 via wheel chair. Support person present. Oriented to unit, room, information board, rooming in, admission packet and security measures. Patient verbalizes understanding.
[2023-10-01 13:35] LABS: Rapid Plasma Reagin Non-Reactive (NonReactive)
[2023-10-01] MEDS: IBUPROFEN 600 MG TABLET PO (18:45)
[2023-10-01] MEDS: ACETAMINOPHEN 325 MG TABLET 650 MG PO (18:46)
[2023-10-02 06:00] LABS: Hematocrit 32.5 % (37.0-47.0); Hemoglobin 10.2 g/dL (12.0-15.0); Mean Corpuscular HGB Conc 31.4 g/dl (32-36); Mean Corpuscular Hemoglobin 28.7 pg (26-34); Mean Corpuscular Volume 91.3 fl (80-100); Mean Platelet Volume 10.7 fl (7.4-10.4); Platelet Count Result 193 k/mm3 (150-375); Red Blood Count 3.56 M/mm3 (4.2-5.4); Red Cell Distribution Width 12.9 % (11.5-14.5); White Blood Count 9.8 K/mm3 (4.5-10.0)
--- NOTE | 2023-10-02 06:41 | PM.OBDSVD ---
DS: Admitting Diagnosis Discharge Date 10/02/23 Admitting Diagnosis Active labor at term DS: Discharge Diagnosis Discharge Diagnosis (1) (normal spontaneous vaginal delivery): Code(s): O80 - Encounter for full-term uncomplicated delivery Status: Acute OB - DS: Summary OB Procedures : Ultrasound OB Procedures Intrapartum: Spontaneous Vag Delivery OB Procedures: : None Peripartum Data Infant Delivery Method: Natural Vaginal Laceration Description: None complications: none Stow 1: Gender: Male Disposition of : home Status at Discharge Functional status at discharge: independent ambulation Overall status at discharge: patient is back to baseline Time Spent with Patient Time attestation: Total time spent providing and/or coordinating discharge services: Time spent: Less than 30 minutes Exam Const: General: cooperative, healthy appearing, comfortable and no acute distress Orientation/consciousness: patient oriented x3 Resp: Effort & Inspection: normal respiratory effort Auscultation: clear to auscultation bilaterally Cardio: Rate: regular rate GI: Inspection: non-distended GI Palp: No abdominal tenderness and Yes Soft to palpation Auscultation: normal bowel sounds : Other: fundus firm Skin: General skin exam: normal color Neuro: General: patient oriented x3 Extrem: General: normal to inspection Psych: Appearance: grossly normal Affect: normal affect Attitude: cooperative DS: Data Data Completed and Pending Labs on day of discharge: Labs from last 24 hours 10/01/23 06:22 WBC 8.1 RBC 3.48 L Hgb 10.1 L Hct 31.2 L MCV 89.7 MCH 29.0 MCHC 32.4 RDW 13.0 Plt Count 208 MPV 10.3 Immature Gran % (Auto) 0.2 Neut % (Auto) 52.1 Lymph % (Auto) 36.5 [place] % (Auto) 8.1 Eos % (Auto) 2.4 Baso % (Auto) 0.7 Lymph # (Auto) 2.94 [place] # (Auto) 0.7 H Eos # (Auto) 0.2 Baso # (Auto) 0.1 Abs Immat Gran (auto) 0.02 Absolute Neuts (auto) 4.2 Absolute Nucleated RBC 0.000 Nucleated RBC % 0.0 RPR Non-reactive HIV 1&2 Ab/P24 Ag 4thGn Negative Blood Type O Positive Antibody Screen Negative Discharge Plan Discharge Attending physician on discharge: Amy Sprague Discharging Clinician: Amy Sprague Anticipated Discharge Date/Time: 10/02/23 16:00 Patient Disposition: Home, Self-Care Activity: may shower and pelvic rest Diet: regular Patient Instructions: Vaginal Delivery (DC) Stand Alone Forms: General Discharge Information Follow-up/Referrals: Amy Sprague MD [Physician] - 4 Weeks Discharge Medications: New acetaminophen 325 mg Tablet 650 mg PO Q6H PRN (Reason: Mild Pain (1-3) Or Headache) Qty: 60 0RF docusate sodium 100 mg Capsule 100 mg PO BID PRN (Reason: Constipation) Qty: 90 0RF ibuprofen 600 mg Tablet 600 mg PO Q6H PRN (Reason: Cramping) Qty: 40 0RF Discontinued valacyclovir 500 mg tablet 500 mg PO Q12H Qty: 120 4RF Date of admission: 10/01/23 06:03 Primary Care Provider: PHYSICIAN,COLLECTION TELLER Admitting Provider: Amy Sprague Attending physician on admission: Amy Sprague Condition: Stable
--- NOTE | 2023-10-02 06:41 | PM.OBPNVD ---
OB - PN: Subj Subjective Date/time seen: 10/02/23 07:05 Narrative: PPD#1 Mai reports doing well today. 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 Her pain is controlled. She is tolerating regular diet, voiding, passing gas, and ambulating without issues. She is bottle feeding. She would like her son circumcised. She would like to go home today. OB - PN: Obj Data Labs 10/02/23 04:13 Labs: Laboratory Results - last 24 hr 10/01/23 06:22 WBC 8.1 RBC 3.48 L Hgb 10.1 L Hct 31.2 L MCV 89.7 MCH 29.0 MCHC 32.4 RDW 13.0 Plt Count 208 MPV 10.3 Immature Gran % (Auto) 0.2 Neut % (Auto) 52.1 Lymph % (Auto) 36.5 [place] % (Auto) 8.1 Eos % (Auto) 2.4 Baso % (Auto) 0.7 Lymph # (Auto) 2.94 [place] # (Auto) 0.7 H Eos # (Auto) 0.2 Baso # (Auto) 0.1 Abs Immat Gran (auto) 0.02 Absolute Neuts (auto) 4.2 Absolute Nucleated RBC 0.000 Nucleated RBC % 0.0 RPR Non-reactive HIV 1&2 Ab/P24 Ag 4thGn Negative Blood Type O Positive Antibody Screen Negative OB - PN A/P Assessment and Plan (1) (normal spontaneous vaginal delivery): Code(s): O80 - Encounter for full-term uncomplicated delivery Status: Acute Plan day: 1 Plan: routine care Comments: - PO pain meds - Regular diet - Ambulation and hydration encouraged - Continue putting baby to breast q2-3hr - Pelvic rest; take meds as prescribed - ER return precautions: fever, n/v/abd pain, bleeding, HTN Time Spent With Patient Time: Total time spent is greater than 50% in coordination of care (as documented) at patient's floor/unit and/or counseling patient: Review of Systems Constitutional: Constitutional: Denies chills, Denies fever(s) and Denies headache(s) Eyes: Eyes: Denies change in vision ENT: Denies dizziness and Denies headache(s) Cardiovascular: Cardiovascular: Denies chest pain, Denies palpitations and Denies dyspnea Respiratory: Respiratory: Denies cough and Denies dyspnea Gastrointestinal: Gastrointestinal: Denies nausea and Denies vomiting Neurologic: Denies dizziness and Denies headache(s) Endocrine: Endocrine: Denies palpitations Exam Const: General: cooperative, healthy appearing, comfortable and no acute distress Orientation/consciousness: patient oriented x3 Resp: Effort & Inspection: normal respiratory effort Auscultation: clear to auscultation bilaterally Cardio: Rate: regular rate GI: Inspection: non-distended GI Palp: No abdominal tenderness and Yes Soft to palpation Auscultation: normal bowel sounds : Other: fundus firm Skin: General skin exam: normal color Neuro: General: patient oriented x3 Extrem: General: normal to inspection Psych: Appearance: grossly normal Affect: normal affect Attitude: cooperative
[2023-10-02 08:09] VITALS: BP 128/71; PULSE 63; RESP 16; TEMP 36.4; O2SAT 98
[2023-10-02] MEDS: valACYclovir HCL 500 MG TABLET PO (08:38)
[2023-10-02] MEDS: DOCUSATE SODIUM 100 MG CAPSULE PO (08:38)
--- NOTE | 2023-10-02 13:53 | WPDANLDPN2 ---
Anes-Prog Note L&D Date/Time: 10/02/23 13:53 Neuro status: Neuro function grossly intact. Cardiovascular status: normal Respiratory status: normal Airway patency: baseline Mental status: baseline Post-Op hydration status: normal Vital Signs: Last Vital Signs Temp 36.4 C 10/02/23 08:09 Pulse 63 10/02/23 08:09 Resp 16 10/02/23 08:09 BP 128/71 10/02/23 08:09 Pulse Ox 98 10/02/23 08:09 O2 Del Method Room Air 10/01/23 06:27 Pain score (VAS): 0 I/O: Intake & Output 10/01/23 10/02/23 10/02/23 23:59 07:59 15:59 Intake Total 100 Balance 100 Post-procedural complaints: none Patient feedback: Patient satisfied with anesthetic care.
--- NOTE | 2023-10-02 14:39 | PC.NURSE ---
7400 WIC referral form faxed to [place] office. Mother aware.
[2023-10-03 12:59] VITALS: BP 119/72; PULSE 71; RESP 18; TEMP 36.9; O2SAT 99
== END 2023-10-02 12:50 | disposition home or self-care (01) | DRG 560 ==
LOC: ANHLDR 11:09 → ANHOB2 13:34
PROVIDERS: Admitting Provider Obstetrics & Gynecology; Visit Provider Obstetrics & Gynecology
DX: O98.32 Other infections with a predominantly sexual mode of transmission complicating childbirth (principal); Z37.0 Single live birth; Z3A.39 39 weeks gestation of pregnancy; A60.09 Herpesviral infection of other urogenital tract; O99.02 Anemia complicating childbirth; D64.9 Anemia, unspecified; O99.344 Other mental disorders complicating childbirth; F41.9 Anxiety disorder, unspecified
CPT/HCPCS: 36415; 85025; 85027; 86592; 86703; 86850; 86900; 86901; A9270; G0378; G0379; G0432; J2590; J2795; J7120

== ENCOUNTER 2023-10-30 15:46 | Outpatient (CLI) | payer OTHER, SELFPAY ==
[2023-10-30 16:53] LABS: Beta HCG Quantitative < 2.39 mIU/ML
== END 2023-10-30 15:47 | disposition home or self-care (01) ==
LOC: ANHLAB 15:47
PROVIDERS: Visit Provider Obstetrics & Gynecology
DX: N92.6 Irregular menstruation, unspecified (principal)
CPT/HCPCS: 36415; 84702